=== PATIENT | male | born 1970 | race Caucasian/White ===

== ENCOUNTER 2017-09-24 14:54 | Inpatient (IN) | payer OTHER ==
[2017-09-24 17:22] VITALS: BMI 36.4
--- NOTE | 2017-09-24 19:42 | HP ---
CIWA Score - CIWA Score Nausea/Vomitin Muscle Tremors: 3 Anxiety: 2 Agitation: 1-Slight > Activity Paroxysmal Sweats: 2 Orientation: 1-Uncertain about Date Tacttile Disturbances: 1-Very Mild Itch/Numbness Auditory Disturbances: 0-None Visual Disturbances: 1-Very Mild Sensitivity Headache: 2-Mild CIWA-Ar Total Score: 16 Admission ROS BHS - HPI Chief Complaint: " I want to get better, I currently need to drink 2-3 pints a a day or start feeling shaky and I gets the sweats." Allergies/Adverse Reactions: Allergies Allergy/AdvReac Type Severity Reaction Status Date / Time No Known Allergies Allergy Verified 09/24/17 19:26 History of Present Illness: 47 male wit hx of nicotine, heroin, cocaine and alcohol dependence is here seeking detox. PMHX: asthma, chronic right knee pain, obesity, depression. Denies suicidal / homicidal ideation or suicide attempts. Currently currently attends MMTP at [facility], currently on 80mg methadone. last medicated today. Last detox [facility] 2000. Longest period of sobriety 1 year. Reports hx of blackouts related to drinking, last episode three days ago, denies hx of seizures. Exam Limitations: No Limitations - Ebola screening Have you traveled outside of the country in the last 21 days: No Have you had contact with anyone from an Ebola affected area: No Have you been sick,other than usual withdrawal symptoms: No Do you have a fever: No - Review of Systems Constitutional: Chills, Loss of Appetite, Changes in sleep EENT: reports: No Symptoms Reported Respiratory: reports: Cough (chronic), SOB with Exertion Cardiac: reports: Chest Tightness (when ambualting up steps) GI: reports: Diarrhea, Nausea, Poor Fluid Intake, Indigestion, Abdominal cramping : reports: No Symptoms Reported Musculoskeletal: reports: Back Pain, Other (knee, right foot) Integumentary: reports: Rash (chronic on the right lower extremity) Neuro: reports: Headache, Tingling (right big toe) Endocrine: reports: Increased Thirst Hematology: reports: No Symptoms Reported Psychiatric: reports: Orientated x3, Depressed Other Systems: Reviewed and Negative Patient History - Patient Medical History Hx Anemia: No Hx Asthma: Yes Hx Chronic Obstructive Pulmonary Disease (COPD): No Hx Cancer: No Hx Cardiac Disorders: No Hx Congestive Heart Failure: No Hx Hypertension: No Hx Hypercholesterolemia: No Hx Pacemaker: No HX Cerebrovascular Accident: No Hx Seizures: No Hx Dementia: No Hx Diabetes: No Hx Gastrointestinal Disorders: No Hx Liver Disease: No Hx Genitourinary Disorders: No Hx Sexually Transmitted Disorders: No Hx Renal Disease (ESRD): No Hx Thyroid Disease: No Hx Human Immunodeficiency Virus (HIV): No (Last tested May 2017, declines testing today ) Hx Hepatitis C: No Hx Depression: Yes Hx Suicide Attempt: Yes (at 18 yo, by hanging ) Hx Bipolar Disorder: No Hx Schizophrenia: No - Patient Surgical History Past Surgical History: No Hx Neurologic Surgery: No Hx Cataract Extraction: No Hx Cardiac Surgery: No Hx Lung Surgery: No Hx Breast Surgery: No Hx Breast Biopsy: No Hx Abdominal Surgery: No Hx Appendectomy: No Hx Cholecystectomy: No Hx Genitourinary Surgery: No Hx Section: No Hx Orthopedic Surgery: No Hx Hysterectomy: No - PPD History Previous Implant?: Yes Documented Results: Negative w/o proof Implanted On Prior [facility] Admission?: No PPD to be Administered?: Yes - Reproductive History Patient is a Female of Child Bearing Age (11 -55 yrs old): No - Smoking Cessation Smoking history: Current every day smoker Have you smoked in the past 12 months: Yes Hx Chewing Tobacco Use: No Initiated information on smoking cessation: Yes 'Breaking Loose' booklet given: 09/24/17 - Substance & Tx. History Hx Alcohol Use: Yes Hx Substance Use: Yes Substance Use Type: Alcohol, Heroin Hx Substance Use Treatment: Yes (As per patient [facility] 2000) - Substances Abused Alcohol Route: Oral Frequency: Daily Amount used: 3 pints - Don Q and 12 beers Age of first use: 43 (reports needs to drink BID or gets the shakes ) Date of Last Use: 09/24/17 Family Disease History - Family Disease History Family Disease History: Heart Disease: Mother (alive, thyroid), Other: Father ( , homocide ), Mother Admission Physical Exam S - Vital Signs Vital Signs: Vital Signs - 24 hr 09/24/17 17:16 Temperature 98 F Pulse Rate 107 H Respiratory 20 Rate Blood Pressure 142/77 - Physical General Appearance: Yes: Mild Distress, Alcohol on Breath, Obese, Tremorous, Anxious HEENTM: Yes: EOMI, Hearing grossly Normal, Normal ENT Inspection, Normocephalic , Normal Voice, LEANNA, Pharynx Normal, Tm's normal Respiratory: Yes: Chest Non-Tender, Lungs Clear, No Respiratory Distress, No Accessory Muscle Use, Wheezing Neck: Yes: No masses,lesions,Nodules, Trachea in good position Breast: Yes: Breast Exam Deferred Cardiology: Yes: Regular Rhythm, Regular Rate Abdominal: Yes: Normal Bowel Sounds, Non Tender, Flat, Soft, Protuberent Genitourinary: Yes: Within Normal Limits Back: Yes: Normal Inspection Musculoskeletal: Yes: full range of Motion, Back pain, Other (ambulates with cane) Extremities: Yes: Normal Capillary Refill, Normal Inspection, Normal Range of Motion, Non-Tender Neurological: Yes: manager of development II-XII NML intact, Fully Oriented, Alert, Motor Strength 5/5, Depressed Affect Integumentary: Yes: Normal Color, Warm, Diaphoresis Lymphatic: Yes: Within Normal Limits - Diagnostic (1) Alcohol dependence with withdrawal Current Visit: Yes Status: Acute Qualifiers: Complication of substance-induced condition: uncomplicated Qualified Code(s ): F10.230 - Alcohol dependence with withdrawal, uncomplicated (2) Nicotine dependence Current Visit: Yes Status: Acute Qualifiers: Nicotine product type: cigarettes (3) Opioid dependence on agonist therapy Current Visit: Yes Status: Acute Comment: Methadone 80 mg, dose pending verification (4) Ambulates with cane Current Visit: Yes Status: Chronic (5) Back pain Current Visit: Yes Status: Acute Qualifiers: Back pain location: low back pain Back pain laterality: bilateral Sciatica presence: without sciatica (6) Wheezing Current Visit: Yes Status: Acute (7) Depressed mood Current Visit: Yes Status: Acute (8) Asthma Current Visit: Yes Status: Acute Qualifiers: Asthma severity: unspecified severity Asthma persistence: unspecified Cleared for Admission S - Detox or Rehab [facility] Level of Care: Medically Managed Detox Regimen/Protocol: Librium [facility] Breath Alcohol Content Breath Alcohol Content: 0 Urine Drug Screen - Results Drug Screen Negative: No Urine Drug Screen Results: FAYE-Cocaine, OPI-Opiates, MTD-Methadone
[2017-09-24] MEDS ORDERED: NICOTINE POLACRILEX 2 MG GUM BC PRN (19:51)
[2017-09-24] MEDS ORDERED: LOPERAMIDE HCL 2 MG CAPSULE PO PRN (19:51)
[2017-09-24] MEDS ORDERED: hydrOXYzine PAMOATE 50 MG CAPSULE (FP) PO PRN (19:51)
[2017-09-24] MEDS ORDERED: MENTHOL/PHENOL 1 EACH UD MM PRN (19:51)
[2017-09-24] MEDS ORDERED: guaiFENesin/D-METHORPHAN HB 10 ML UNIT-DOSE CUPS PO PRN (19:51)
[2017-09-24] MEDS ORDERED: ACETAMINOPHEN 325 MG TABLET (FP) PO PRN (19:51)
[2017-09-24] MEDS ORDERED: MAG HYDROX/AL HYDROX/SIMETH 30 ML UNIT-DOSE CUP PO PRN (19:51)
[2017-09-24] MEDS ORDERED: MAGNESIUM HYDROX 2400MG/30ML ORAL SUSPENSION 30 ML CUP PO PRN (19:51)
[2017-09-24] MEDS ORDERED: P-EPHED 60MG/TRIPROLIDI 2.5MG TABLET PO PRN (19:51)
[2017-09-24] MEDS ORDERED: MAGNESIUM CITRATE 300 ML BOTTLE PO PRN (19:51)
[2017-09-24] MEDS ORDERED: chlordiazePOXIDE HCL 25 MG CAPSULE PO ONE (19:51)
[2017-09-24] MEDS ORDERED: ALBUTEROL SO4 0.083% IH SOL 2.5 MG/3 ML VIAL.NEB. NEB PRN (19:55)
[2017-09-24] MEDS ORDERED: ALBUTEROL SO4 18 GM HFA INHALER IH PRN (20:06)
[2017-09-24] MEDS ORDERED: HYDROCORTISONE 1% TOPICAL OINT 30 GM TUBE TP PRN (21:38)
[2017-09-24] MEDS: chlordiazePOXIDE HCL 25 MG CAPSULE PO SCH (22:13)
[2017-09-24] MEDS: THIAMINE HCL 100 MG TABLET (FP) PO SCH (22:13)
[2017-09-24] MEDS: BACITRACIN 0.9 GM PACKET TP SCH (22:13)
[2017-09-24] MEDS: MELATONIN 5 MG TABLETS PO PRN (22:14)
[2017-09-24 23:10] LABS: URINE APPEARANCE SLCLOUDY; URINE BILIRUBIN NEGATIVE (<2.0 mg/dL); URINE COLOR YELLOW; URINE GLUCOSE (UA) NEGATIVE (NEGATIVE); URINE KETONE NEGATIVE (NEGATIVE); URINE LEUK ESTERASE TRACE (NEGATIVE); URINE NITRITE NEGATIVE (NEGATIVE); URINE PROTEIN NEGATIVE (NEGATIVE); URINE UROBILINOGEN NEGATIVE mg/dL (0.2-1.0)
[2017-09-24 23:15] LABS: EPI CELLS RARE /HPF (FEW); URINE MUCUS RARE
[2017-09-25] MEDS: chlordiazePOXIDE HCL 25 MG CAPSULE PO SCH ×4 (05:10→22:05)
[2017-09-25] MEDS ORDERED: METHADONE HCL 10 MG TABLET PO ONE ×2 (09:35→09:45)
[2017-09-25] MEDS ORDERED: METHADONE HCL 40 MG DISPERSABLE TABLET PO ONE (10:00)
[2017-09-25 10:05] LABS: HEMATOCRIT 39.1 % (35.4-49); HEMOGLOBIN 13.2 GM/dL (11.7-16.9); MCH 30.1 pg (25.7-33.7); MCHC 33.9 g/dl (32.0-35.9); MEAN CELL VOLUME 88.9 fl (80-96); MEAN PLT VOLUME 7.7 fl (7.5-11.1); PLATELET COUNT 258 K/MM3 (134-434); WHITE BLOOD COUNT 6.4 K/mm3 (4.0-10.0)
[2017-09-25] MEDS: BACITRACIN 0.9 GM PACKET TP SCH ×2 (10:14→22:07)
[2017-09-25] MEDS: PRENATAL VITAMINS W/ FOLIC ACID TABLET (FP) PO SCH (10:14)
[2017-09-25] MEDS: NICOTINE 21 MG/24 HOURS TOPICAL PATCH TD SCH (10:15)
--- NOTE | 2017-09-25 10:27 | PN ---
S CIWA - CIWA Score Nausea/Vomitin Muscle Tremors: 3 Anxiety: 3 Agitation: 2 Paroxysmal Sweats: 1-Minimal Palms Moist Orientation: 0-Oriented Tacttile Disturbances: 1-Very Mild Itch/Numbness Auditory Disturbances: 1-Very Mild Visual Disturbances: 0-None Headache: 2-Mild CIWA-Ar Total Score: 16 BHS Progress Note (SOAP) Subjective: ALERT,IRRITABLE,ANXIOUS,INTERRUPTED SLEEP,TREMOR Objective: 09/25/17 10:20 Vital Signs Temperature 97.3 F L 09/25/17 06:21 Pulse Rate 78 09/25/17 06:21 Respiratory Rate 18 09/25/17 06:21 Blood Pressure 130/84 09/25/17 06:21 O2 Sat by Pulse Oximetry (%) EKG NSR PROLONG QT 384/453 NO CHEST PAIN,NO SOB,NO DIZZINESS Laboratory Last Values WBC 6.4 K/mm3 (4.0-10.0) 09/25/17 07:00 RBC 4.40 M/mm3 (4.00-5.60) 09/25/17 07:00 Hgb 13.2 GM/dL (11.7-16.9) 09/25/17 07:00 Hct 39.1 % (35.4-49) 09/25/17 07:00 MCV 88.9 fl (80-96) 09/25/17 07:00 MCH 30.1 pg (25.7-33.7) 09/25/17 07:00 MCHC 33.9 g/dl (32.0-35.9) 09/25/17 07:00 RDW 14.0 % (11.9-15.9) 09/25/17 07:00 Plt Count 258 K/MM3 (134-434) 09/25/17 07:00 MPV 7.7 fl (7.5-11.1) 09/25/17 07:00 Urine Color Yellow 09/24/17 23:00 Urine Appearance Slcloudy 09/24/17 23:00 Urine pH 6.0 (5.0-8.0) 09/24/17 23:00 Ur Specific [place] 1.025 (1.001-1.035) 09/24/17 23:00 Urine Protein Negative (NEGATIVE) 09/24/17 23:00 Urine Glucose (UA) Negative (NEGATIVE) 09/24/17 23:00 Urine Ketones Negative (NEGATIVE) 09/24/17 23:00 Urine Blood Negative (NEGATIVE) 09/24/17 23:00 Urine Nitrite Negative (NEGATIVE) 09/24/17 23:00 Urine Bilirubin Negative (<2.0 mg/dL) 09/24/17 23:00 Urine Urobilinogen Negative mg/dL (0.2-1.0) 09/24/17 23:00 Ur Leukocyte Esterase Trace (NEGATIVE) 09/24/17 23:00 Urine WBC (Auto) <1 /hpf (3-5) 09/24/17 23:00 Urine RBC (Auto) <1 /hpf (0-3) 09/24/17 23:00 Ur Epithelial Cells Rare /HPF (FEW) 09/24/17 23:00 Urine Mucus Rare 09/24/17 23:00 LABS PENDING Assessment: 09/25/17 10:27 WITHDRAWAL SYMPTOM Plan: CONTINUE DETOX
[2017-09-25 11:08] LABS: CHLORIDE 105 mmol/L (98-107); POTASSIUM 4.1 mmol/L (3.5-5.1); SODIUM 141 mmol/L (136-145)
[2017-09-25 11:17] LABS: ALBUMIN 3.6 g/dl (3.4-5.0); ALK PHOS 67 U/L (45-117); ANION GAP 8 (8-16); BILIRUBIN,TOTAL 0.2 mg/dL (0.2-1.0); BLOOD UREA NITROGEN 18 mg/dL (7-18); CALCIUM 8.9 mg/dL (8.5-10.1); CO2 28 mmol/L (21-32); CREATININE 0.8 mg/dL (0.7-1.3); GLUCOSE,RANDOM 88 mg/dL (74-106); SGOT/AST 21 U/L (15-37); SGPT/ALT 35 U/L (12-78)
--- NOTE | 2017-09-25 11:23 | CONSULT ---
[facility] Psychiatric Consult - Data Date of interview: 09/25/17 Admission source: [facility] Identifying data: Patient is a 47 year old male, single, father of one , employed ([employer]), and currently lives with his partner. Patient admitted to for alcohol and opiate dependence. Substance Abuse History: Following information confirmed with Mr. Gabriel: - Smoking Cessation. Smoking history: Current every day smoker. Have you smoked in the past 12 months: Yes. Hx Chewing Tobacco Use: No. Initiated information on smoking cessation: Yes. 'Breaking Loose' booklet given: 09/24/17. - Substance & Tx. History. Hx Alcohol Use: Yes. Hx Substance Use: Yes. Substance Use Type: Alcohol, Heroin. Hx Substance Use Treatment: Yes (As per patient [facility] 2000). - Substances Abused. Alcohol. Route: Oral. Frequency : Daily. Amount used: 3 pints - Don Q and 12 beers. Age of first use: 43 ( reports needs to drink BID or gets the shakes ). Date of Last Use: 09/24/17 Medical History: Asthma Psychiatric History: Patient appears to be minimizing information. Patient denies h/o psychatric hospitalizations, and outpatient care. When asked if he has a prior history of suicide attempts patient responded by stating, "nothing that the doctor should know." As per records patient reported one suicide attempt at the age of 18 via hanging. Pt. currently denies suicidal and homicidal ideation. Physical/Sexual Abuse/Trauma History: Denies. Mental Status Exam - Mental Status Exam Alert and Oriented to: Time, Place, Person Cognitive Function: Good Patient Appearance: Well Groomed Mood: Withdrawn, Euthymic Affect: Mood Congruent Patient Behavior: Guarded Speech Pattern: Clear Voice Loudness: Moderately Soft/Quiet Thought Process: Goal Oriented Thought Disorder: Not Present Hallucinations: Denies Suicidal Ideation: Denies Homicidal Ideation: Denies Insight/Judgement: Poor Sleep: Fair Appetite: Fair Muscle strength/Tone: Normal Gait/Station: Other (Patient ambulates with a cane.) Psychiatric Findings - Problem List ([place] 1, 2,3) (1) Alcohol dependence with withdrawal Current Visit: Yes Status: Acute Qualifiers: Complication of substance-induced condition: uncomplicated Qualified Code(s ): F10.230 - Alcohol dependence with withdrawal, uncomplicated (2) Nicotine dependence Current Visit: Yes Status: Acute Qualifiers: Nicotine product type: cigarettes (3) Opioid dependence on agonist therapy Current Visit: Yes Status: Acute Comment: Methadone 80 mg, dose pending verification (4) Substance induced mood disorder Current Visit: Yes Status: Suspected - Initial Treatment Plan Initial Treatment Plan: Psychoeducation provided. Detoxification in progress.
[2017-09-25] MEDS: chlordiazePOXIDE HCL 25 MG CAPSULE PO PRN (20:32)
[2017-09-25] MEDS: IBUPROFEN 400 MG TABLET (FP) PO PRN (20:32)
[2017-09-25] MEDS: THIAMINE HCL 100 MG TABLET (FP) PO SCH (22:06)
[2017-09-26] MEDS: METHADONE HCL 40 MG DISPERSABLE TABLET PO SCH (05:33)
[2017-09-26] MEDS: chlordiazePOXIDE HCL 25 MG CAPSULE PO SCH ×3 (05:33→17:31)
--- NOTE | 2017-09-26 09:18 | PN ---
S CIWA - CIWA Score Nausea/Vomitin Muscle Tremors: 3 Anxiety: 3 Agitation: 2 Paroxysmal Sweats: 1-Minimal Palms Moist Orientation: 0-Oriented Tacttile Disturbances: 1-Very Mild Itch/Numbness Auditory Disturbances: 1-Very Mild Visual Disturbances: 0-None Headache: 2-Mild CIWA-Ar Total Score: 16 BHS Progress Note (SOAP) Subjective: ALERT,IRRITABLE,ANXIOUS,INTERRUPTED SLEEP Objective: 09/26/17 09:18 Vital Signs Temperature 97.3 F L 09/26/17 09:17 Pulse Rate 83 09/26/17 09:17 Respiratory Rate 18 09/26/17 09:17 Blood Pressure 120/71 09/26/17 09:17 O2 Sat by Pulse Oximetry (%) 09/26/17 09:18 Laboratory Last Values WBC 6.4 K/mm3 (4.0-10.0) 09/25/17 07:00 RBC 4.40 M/mm3 (4.00-5.60) 09/25/17 07:00 Hgb 13.2 GM/dL (11.7-16.9) 09/25/17 07:00 Hct 39.1 % (35.4-49) 09/25/17 07:00 MCV 88.9 fl (80-96) 09/25/17 07:00 MCH 30.1 pg (25.7-33.7) 09/25/17 07:00 MCHC 33.9 g/dl (32.0-35.9) 09/25/17 07:00 RDW 14.0 % (11.9-15.9) 09/25/17 07:00 Plt Count 258 K/MM3 (134-434) 09/25/17 07:00 MPV 7.7 fl (7.5-11.1) 09/25/17 07:00 Sodium 141 mmol/L (136-145) 09/25/17 07:00 Potassium 4.1 mmol/L (3.5-5.1) 09/25/17 07:00 Chloride 105 mmol/L (98-107) 09/25/17 07:00 Carbon Dioxide 28 mmol/L (21-32) 09/25/17 07:00 Anion Gap 8 (8-16) 09/25/17 07:00 BUN 18 mg/dL (7-18) 09/25/17 07:00 Creatinine 0.8 mg/dL (0.7-1.3) 09/25/17 07:00 Creat Clearance w eGFR > 60 (>60) 09/25/17 07:00 Random Glucose 88 mg/dL (74-106) 09/25/17 07:00 Calcium 8.9 mg/dL (8.5-10.1) 09/25/17 07:00 Total Bilirubin 0.2 mg/dL (0.2-1.0) 09/25/17 07:00 AST 21 U/L (15-37) 09/25/17 07:00 ALT 35 U/L (12-78) 09/25/17 07:00 Alkaline Phosphatase 67 U/L (45-117) 09/25/17 07:00 Total Protein 7.0 g/dl (6.4-8.2) 09/25/17 07:00 Albumin 3.6 g/dl (3.4-5.0) 09/25/17 07:00 Urine Color Yellow 09/24/17 23:00 Urine Appearance Slcloudy 09/24/17 23:00 Urine pH 6.0 (5.0-8.0) 09/24/17 23:00 Ur Specific [place] 1.025 (1.001-1.035) 09/24/17 23:00 Urine Protein Negative (NEGATIVE) 09/24/17 23:00 Urine Glucose (UA) Negative (NEGATIVE) 09/24/17 23:00 Urine Ketones Negative (NEGATIVE) 09/24/17 23:00 Urine Blood Negative (NEGATIVE) 09/24/17 23:00 Urine Nitrite Negative (NEGATIVE) 09/24/17 23:00 Urine Bilirubin Negative (<2.0 mg/dL) 09/24/17 23:00 Urine Urobilinogen Negative mg/dL (0.2-1.0) 09/24/17 23:00 Ur Leukocyte Esterase Trace (NEGATIVE) 09/24/17 23:00 Urine WBC (Auto) <1 /hpf (3-5) 09/24/17 23:00 Urine RBC (Auto) <1 /hpf (0-3) 09/24/17 23:00 Ur Epithelial Cells Rare /HPF (FEW) 09/24/17 23:00 Urine Mucus Rare 09/24/17 23:00 09/26/17 09:19 RPR PENDING Assessment: 09/26/17 09:19 WITHDRAWAL SYMPTOM Plan: CONTINUE DETOX
--- NOTE | 2017-09-26 09:50 | EKG ---
Test Reason : Blood Pressure : / mmHG Vent. Rate : 084 BPM Atrial Rate : 084 BPM P-R Int : 178 ms QRS Dur : 084 ms QT Int : 384 ms P-R-T Axes : 064 045 025 degrees QTc Int : 453 ms NORMAL SINUS RHYTHM NONSPECIFIC ST AND T WAVE ABNORMALITY ABNORMAL ECG NO PREVIOUS ECGS AVAILABLE Confirmed by JON BRIGGS, LAVONNE ([id number]) on 09/26/2017 9:49:59 AM Referred By: Confirmed By:LAVONNE WEBB MD
[2017-09-26] MEDS: PRENATAL VITAMINS W/ FOLIC ACID TABLET (FP) PO SCH (10:24)
[2017-09-26] MEDS: BACITRACIN 0.9 GM PACKET TP SCH ×2 (10:24→22:14)
[2017-09-26] MEDS: NICOTINE 21 MG/24 HOURS TOPICAL PATCH TD SCH (10:26)
[2017-09-26] MEDS: chlordiazePOXIDE 5 MG CAPSULE PO SCH (22:14)
[2017-09-26] MEDS: THIAMINE HCL 100 MG TABLET (FP) PO SCH (22:14)
[2017-09-26] MEDS: MELATONIN 5 MG TABLETS PO PRN (22:16)
[2017-09-27] MEDS: chlordiazePOXIDE 5 MG CAPSULE PO SCH ×3 (06:25→17:49)
[2017-09-27] MEDS: METHADONE HCL 40 MG DISPERSABLE TABLET PO SCH (06:25)
[2017-09-27] MEDS: IBUPROFEN 400 MG TABLET (FP) PO PRN (06:28)
[2017-09-27] MEDS: BACITRACIN 0.9 GM PACKET TP SCH ×2 (10:38→23:01)
[2017-09-27] MEDS: PRENATAL VITAMINS W/ FOLIC ACID TABLET (FP) PO SCH (10:38)
[2017-09-27] MEDS: NICOTINE 21 MG/24 HOURS TOPICAL PATCH TD SCH (10:39)
--- NOTE | 2017-09-27 11:54 | PN ---
S Progress Note (SOAP) Subjective: ALERT,IRRITABLE,INTERRUPTED SLEEP Objective: 09/27/17 11:53 Vital Signs Temperature 97.7 F 09/27/17 09:31 Pulse Rate 86 09/27/17 09:31 Respiratory Rate 20 09/27/17 09:31 Blood Pressure 120/76 09/27/17 09:31 O2 Sat by Pulse Oximetry (%) Assessment: 09/27/17 11:53 WITHDRAWAL SYMPTOM Plan: CONTINUE DETOX,[place] SOAP,DISCHARGE IN AM
[2017-09-27] MEDS ORDERED: COLLOIDAL OATMEAL 1 BAR EACH TP PRN (11:55)
[2017-09-27] MEDS: chlordiazePOXIDE HCL 25 MG CAPSULE PO PRN (15:16)
[2017-09-27] MEDS: THIAMINE HCL 100 MG TABLET (FP) PO SCH (22:21)
[2017-09-27] MEDS: chlordiazePOXIDE HCL 10 MG CAPSULE PO SCH (22:22)
[2017-09-27] MEDS: MELATONIN 5 MG TABLETS PO PRN (22:23)
[2017-09-28] MEDS: chlordiazePOXIDE HCL 10 MG CAPSULE PO SCH (06:36)
[2017-09-28] MEDS: METHADONE HCL 40 MG DISPERSABLE TABLET PO SCH (06:36)
[2017-09-28 07:12] VITALS: BP 122/70; PULSE 78; TEMP 98.1
--- NOTE | 2017-09-28 07:49 | PN ---
S Progress Note (SOAP) Subjective: ALERT,NO COMPLAINT Objective: 09/28/17 07:47 Vital Signs Temperature 98.1 F 09/28/17 07:11 Pulse Rate 78 09/28/17 07:11 Respiratory Rate 18 09/28/17 07:11 Blood Pressure 122/70 09/28/17 07:11 O2 Sat by Pulse Oximetry (%) Assessment: 09/28/17 07:47 DETOX COMPLETED.O WITHDRAWAL SYMPTOM Plan: DISCHARGE TODAY,FOLLOW UP WITH AFTER CARE PROGRAM ARRANGEMENT
--- NOTE | 2017-09-28 07:53 | DS ---
[facility] Detox Discharge Summary Admission Date: 09/24/17 Discharge Date: 09/28/17 - History Present History: Alcohol Dependence, MMTP Additional Comments: FOLLOW UP WITH AFTER CARE PROGRAM ARRANGEMENT Pertinent Past History: BACK PAIN NICOTINE DEPENDENCE BACK PAIN USE CANE FOR AMBULATORY AID ASTHMA - Physical Exam Results Vital Signs: Vital Signs Temperature 98.1 F 09/28/17 07:11 Pulse Rate 78 09/28/17 07:11 Respiratory Rate 18 09/28/17 07:11 Blood Pressure 122/70 09/28/17 07:11 O2 Sat by Pulse Oximetry (%) Pertinent Admission Physical Exam Findings: WITHDRAWAL SIGN AND SYMPTOM Laboratory Last Values WBC 6.4 K/mm3 (4.0-10.0) 09/25/17 07:00 RBC 4.40 M/mm3 (4.00-5.60) 09/25/17 07:00 Hgb 13.2 GM/dL (11.7-16.9) 09/25/17 07:00 Hct 39.1 % (35.4-49) 09/25/17 07:00 MCV 88.9 fl (80-96) 09/25/17 07:00 MCH 30.1 pg (25.7-33.7) 09/25/17 07:00 MCHC 33.9 g/dl (32.0-35.9) 09/25/17 07:00 RDW 14.0 % (11.9-15.9) 09/25/17 07:00 Plt Count 258 K/MM3 (134-434) 09/25/17 07:00 MPV 7.7 fl (7.5-11.1) 09/25/17 07:00 Sodium 141 mmol/L (136-145) 09/25/17 07:00 Potassium 4.1 mmol/L (3.5-5.1) 09/25/17 07:00 Chloride 105 mmol/L (98-107) 09/25/17 07:00 Carbon Dioxide 28 mmol/L (21-32) 09/25/17 07:00 Anion Gap 8 (8-16) 09/25/17 07:00 BUN 18 mg/dL (7-18) 09/25/17 07:00 Creatinine 0.8 mg/dL (0.7-1.3) 09/25/17 07:00 Creat Clearance w eGFR > 60 (>60) 09/25/17 07:00 Random Glucose 88 mg/dL (74-106) 09/25/17 07:00 Calcium 8.9 mg/dL (8.5-10.1) 09/25/17 07:00 Total Bilirubin 0.2 mg/dL (0.2-1.0) 09/25/17 07:00 AST 21 U/L (15-37) 09/25/17 07:00 ALT 35 U/L (12-78) 09/25/17 07:00 Alkaline Phosphatase 67 U/L (45-117) 09/25/17 07:00 Total Protein 7.0 g/dl (6.4-8.2) 09/25/17 07:00 Albumin 3.6 g/dl (3.4-5.0) 09/25/17 07:00 Urine Color Yellow 09/24/17 23:00 Urine Appearance Slcloudy 09/24/17 23:00 Urine pH 6.0 (5.0-8.0) 09/24/17 23:00 Ur Specific [place] 1.025 (1.001-1.035) 09/24/17 23:00 Urine Protein Negative (NEGATIVE) 09/24/17 23:00 Urine Glucose (UA) Negative (NEGATIVE) 09/24/17 23:00 Urine Ketones Negative (NEGATIVE) 09/24/17 23:00 Urine Blood Negative (NEGATIVE) 09/24/17 23:00 Urine Nitrite Negative (NEGATIVE) 09/24/17 23:00 Urine Bilirubin Negative (<2.0 mg/dL) 09/24/17 23:00 Urine Urobilinogen Negative mg/dL (0.2-1.0) 09/24/17 23:00 Ur Leukocyte Esterase Trace (NEGATIVE) 09/24/17 23:00 Urine WBC (Auto) <1 /hpf (3-5) 09/24/17 23:00 Urine RBC (Auto) <1 /hpf (0-3) 09/24/17 23:00 Ur Epithelial Cells Rare /HPF (FEW) 09/24/17 23:00 Urine Mucus Rare 09/24/17 23:00 RPR Titer Nonreactive (NONREACTIVE) 09/25/17 07:00 Vital Signs Temperature 98.1 F 09/28/17 07:11 Pulse Rate 78 09/28/17 07:11 Respiratory Rate 09/28/17 07:11 Blood Pressure 122/70 09/28/17 07:11 O2 Sat by Pulse Oximetry (%) - Treatment Hospital Course: Detox Protocol Followed, Detoxed Safely, Responded well, Discharged Condition Good Patient has Accepted a Rehab Referral to: DECLINED - Medication Discharge Medications: Ambulatory Orders Unobtainable [Unobtainable] 09/24/17 - Diagnosis (1) Alcohol dependence with withdrawal Current Visit: Yes Status: Acute Qualifiers: Complication of substance-induced condition: uncomplicated Qualified Code(s ): F10.230 - Alcohol dependence with withdrawal, uncomplicated (2) Asthma Current Visit: Yes Status: Acute Qualifiers: Asthma severity: unspecified severity Asthma persistence: unspecified (3) Back pain Current Visit: Yes Status: Acute Qualifiers: Back pain location: low back pain Back pain laterality: bilateral Sciatica presence: without sciatica (4) Nicotine dependence Current Visit: Yes Status: Acute Qualifiers: Nicotine product type: cigarettes (5) Opioid dependence on agonist therapy Current Visit: Yes Status: Acute (6) Ambulates with cane Current Visit: Yes Status: Chronic - AMA Did Patient Leave Against Medical Advice: No
== END 2017-09-28 07:15 | disposition home or self-care (01) | DRG 773 ==
LOC: YASAS 14:54 → Y6N 19:35
PROVIDERS: ADMIT Internal Medicine; ATTEND Internal Medicine
PROC: HZ2ZZZZ Detoxification Services for Substance Abuse Treatment (ICD-10-PCS; principal; 2017-09-24)
DX: F11.20 Opioid dependence, uncomplicated (principal); F10.230 Alcohol dependence with withdrawal, uncomplicated; F17.210 Nicotine dependence, cigarettes, uncomplicated; F19.24 Other psychoactive substance dependence with psychoactive substance-induced mood disorder; J45.909 Unspecified asthma, uncomplicated; M54.5 Low back pain; G89.29 Other chronic pain; R26.89 Other abnormalities of gait and mobility; Z99.89 Dependence on other enabling machines and devices
CPT/HCPCS: 36415; 80053; 81003; 81015; 85027; 86593; 93005; 93010